=== PATIENT | male | born 1965 | race Caucasian/White ===

== ENCOUNTER → 2024-11-07 | Outpatient (CLI) | payer BC ==
--- NOTE | 2024-11-07 17:02 | CA ---
Exercise Stress Test Report Name: Buzz Romero Exam Date: 11/07/2024 11:09 Exam Location: [facility] Ht (in): 74 Wt (lb): 250 BSA: 2.39 Ordering Phys: Avtar Haney DO Referring Phys: MJ, Technologist: Ji Ramsey Age: 59 Gender: M : 1965 Procedure CPT: Indications: Z12.2 ENCNTR SCREEN FOR MALIGNANT NEOPLASM OF RESP ICD-10 Codes: Patient History: Medications: Meds past 24 hrs: Pretest Chest Pain: STRESS TEST Ras Protocol Exercise Duration (min:sec): 09:[address] Depressions (mm): Angina Score: Frazier Score: Resting HR (bpm): 90 Peak HR (bpm): 159 Resting BP (mmHg): 153 / 97 Peak BP (mmHg): 215 / 98 MPHR: 163 Target HR: 139 % MPHR: 98 METS: 10.5 Total Dose: Peak Dose: Atropine: Double Product: 30131 BP Response: Stress Termination: Reached target heart rate Stress Symptoms: NO SYMPTOMS Stress Summary: ECG ANALYSIS Resting ECG: Stress ECG: CONCLUSIONS Baseline EKG revealed normal sinus rhythm without significant ST-T changes. Patient walked and stand was protocol for 9 minutes and achieved a maximal heart rate of 159 bpm which is well above 85% of predicted maximal. There was no angina. There were rare isolated PVCs. There were no ST segment changes to indicate ischemia. This is a negative stress test with fair exercise capacity Dr. Cosme Leggett MD (Electronically Signed) Final Date: 07 Nov 2024 17:01
--- NOTE | 2024-11-07 17:23 | CA ---
Transthoracic Echo Report Name: Buzz Romero Age: 59 Gender: M : 1965 Exam Date: 11/07/2024 11:05 Exam Location: [facility] Ht (in): 74 Wt (lb): 250 Ordering Physician: Avtar Haney DO Attending/Referring Phys: Vice President Regulatory Radha Metzger RDCS Procedure CPT: Indications: Z12.2 ENCNTR SCREEN FOR MALIGNANT NEOPLASM OF RESP Cardiac Hx: Technical Quality: Fair Contrast 1: Total Dose (mL): Contrast 2: Total Dose (mL): MEASUREMENTS (Male / Female) Normal Values 2D ECHO LV Diastolic Diameter PLAX 3.7 cm 4.2 - 5.9 / 3.9 - 5.3 cm LV Systolic Diameter PLAX 1.8 cm IVS Diastolic Thickness 1.4 cm 0.6 - 1.0 / 0.6 - 0.9 cm LVPW Diastolic Thickness 1.3 cm 0.6 - 1.0 / 0.6 - 0.9 cm LV Relative Wall Thickness 0.7 RV Internal Dim ED PLAX 3.0 cm LA Systolic Diameter LX 2.8 cm 3.0 - 4.0 / 2.7 - 3.8 cm LV Diastolic Volume MOD BP 119.2 cm??? 67 - 155 / 56 - 104 cm??? LV Systolic Volume MOD BP 52.1 cm??? - 58 / 19 - 49 cm??? LV Ejection Fraction MOD BP 56.3 % >= 55 % LV Cardiac Index MOD BP 2752.4 cm???/min???m??? LV Diastolic Volume MOD 4C 111.1 cm??? LV Systolic Volume MOD 4C 44.7 cm??? LV Ejection Fraction MOD 4C 59.8 % LV Cardiac Index MOD 4C 2725.3 cm???/min???m??? LV Diastolic Length 4C 8.9 cm LV Systolic Length 4C 7.8 cm LV Diastolic Volume MOD 2C 126.7 cm??? LV Systolic Volume MOD 2C 60.0 cm??? LV Ejection Fraction MOD 2C 52.7 % LV Cardiac Index MOD 2C 2737.3 cm???/min???m??? LV Diastolic Length 2C 9.1 cm LV Systolic Length 2C 8.0 cm LA Volume 30.0 cm??? 18 - 58 / 22 - 52 cm??? LA Volume Index 12.2 cm???/m??? 16 - 28 cm???/m??? M-MODE Aortic Root Diameter MM 3.6 cm LA Systolic Diameter MM 3.2 cm LA Ao Ratio MM 0.9 AV Cusp Separation MM 1.8 cm DOPPLER AV Peak Velocity 148.5 cm/s AV Peak Gradient 8.8 mmHg AV Mean Velocity 104.1 cm/s AV Mean Gradient 5.0 mmHg AV Velocity Time Integral 22.7 cm LVOT Peak Velocity 115.8 cm/s LVOT Peak Gradient 5.4 mmHg LVOT Velocity Time Integral 19.9 cm MV Area PHT 7.9 cm??? Mitral E Point Velocity 76.8 cm/s Mitral A Point Velocity 111.8 cm/s Mitral E to A Ratio 0.7 MV Deceleration Time 96.4 ms TR Peak Velocity 286.6 cm/s TR Peak Gradient 32.9 mmHg Right Atrial Pressure 5.0 mmHg Pulmonary Artery Systolic Pressu 37.9 mmHg Right Ventricular Systolic Press 37.9 mmHg FINDINGS Left Ventricle Left ventricular ejection fraction is estimated at 55-60 %. Moderately increased septal wall thickness. Normal left ventricular systolic function with no obvious regional wall motion abnormalities. Left ventricular cavity size normal. Right Ventricle Mild right ventricular dilatation. Mild pulmonary hypertension. Right Atrium Mild right atrial dilatation. Left Atrium Normal left atrial size. Mitral Valve Structurally normal mitral valve. Trace mitral regurgitation. No mitral stenosis. Aortic Valve Trileaflet aortic valve. No aortic valve stenosis or regurgitation. Tricuspid Valve Structurally normal tricuspid valve. Mild tricuspid regurgitation. No tricuspid stenosis. Pulmonic Valve Structurally normal pulmonic valve. Trace pulmonic regurgitation. No pulmonic stenosis. Pericardium No pericardial or pleural effusion. Aorta Aorta at upper limits of normal. CONCLUSIONS Previewed by: Dr. Cosme Leggett MD (Electronically Signed) Final Date: 07 Nov 2024 17:22
== END | disposition home or self-care (01) ==
LOC: RADNMMAIN 10:33
PROVIDERS: ATTEND Family Medicine
DX: I49.3 Ventricular premature depolarization (principal); R94.31 Abnormal electrocardiogram [ECG] [EKG]; R53.82 Chronic fatigue, unspecified; I10 Essential (primary) hypertension
CPT/HCPCS: 93017; 93306